=== PATIENT | female | born 1980 | race Hispanic/Latino ===

== ENCOUNTER 2017-08-15 10:38 | Outpatient (CLI) | payer OTHER ==
--- NOTE | 2017-08-15 11:50 | RAD ---
THORACIC SPINE THREE VIEWS: History: 36-year-old female with thoracic spine pain. FINDINGS: Mild generalized spondylosis. No acute fracture, dislocation, or significant malalignment. IMPRESSION: Mild spondylosis. POS: [facility]
--- NOTE | 2017-08-15 15:59 | RAD ---
LUMBAR SPINE FIVE VIEWS: History: 36-year-old female with low back pain. Comparison: None. FINDINGS: Status post Esure post-operative changes involving the fallopian tubes. Disc spaces are adequately p reserved. No acute fracture or dislocation or significant malalignment. Mild spondylosis, particular ly at L1-2. IMPRESSION: Mild spondylosis. No other acute process. POS: [facility]
== END 2017-08-15 10:39 | disposition home or self-care (01) ==
LOC: RAD 10:38
PROVIDERS: ATTEND Family Medicine
DX: M54.5 Low back pain (principal); M47.814 Spondylosis without myelopathy or radiculopathy, thoracic region; M47.816 Spondylosis without myelopathy or radiculopathy, lumbar region
CPT/HCPCS: 36415; 72070; 72110; 85025; 85652; 86038; 86140; 86430

== ENCOUNTER 2017-09-17 08:05 | Emergency (ER) | payer OTHER ==
--- NOTE | 2017-09-17 08:59 | RAD ---
PORTABLE PA CHEST XRAY: DATE: 09/17/17. HISTORY: Cough for 1 week. COMPARISON: 09/06/11. FINDINGS: Cardiac silhouette and pulmonary vasculature are within normal limits. The lungs are clear. There h as been no interval change from the prior study. IMPRESSION: No acute cardiopulmonary process. POS: [facility]
== END 2017-09-17 09:21 | disposition home or self-care (01) ==
LOC: ERS 08:05
DX: J20.9 Acute bronchitis, unspecified (principal); E11.9 Type 2 diabetes mellitus without complications; K21.9 Gastro-esophageal reflux disease without esophagitis; J45.909 Unspecified asthma, uncomplicated
CPT/HCPCS: 71010; 94640; J7620

== ENCOUNTER 2017-10-26 16:05 | Outpatient (CLI) | payer OTHER | END 2017-10-26 16:06 | disposition home or self-care (01) | LOC: BICRAD 16:05 | PROVIDERS: ATTEND Family Medicine | DX: M79.644 Pain in right finger(s) (principal) ==

== ENCOUNTER 2018-08-14 09:34 | Outpatient (CLI) | payer OTHER ==
[2018-08-14] MEDS ORDERED: ISOVUE-370 76%-LOCM 1 ML ONE (11:18)
--- NOTE | 2018-08-14 11:23 | CT ---
CT OF ABDOMEN AND PELVIS PERFORMED WITH CONTRAST ENHANCEMENT: History: Left sided abdomen pain, more left upper quadrant. Pain for about one month. Comparison: 03-01-13 examination. FINDINGS: The lung bases are clear of infiltrative process. The liver, spleen, pancreas, and gallbladder regions are fairly unremarkable. Question of some slight fatty change to the liver. Right and left adrenal glands and right and left kidneys are normal in size. There is no significant periaortic or mesenteric lymphadenopathy. CT OF PELVIS PERFORMED WITH INTRAVENOUS CONTRAST ENHANCEMENT: The patient appears to have undergone tubal ligation. Somewhat prominent follicles involving the adne xa but no free fluid. A small fat containing paraumbilical hernia is seen. Review of osseous structures show no significant findings. IMPRESSION: 1. No acute abnormalities of the abdomen or pelvis. 2. Small fat containing paraumbilical hernia. POS: [facility]
== END 2018-08-14 09:35 | disposition home or self-care (01) ==
LOC: BICCT 09:34
PROVIDERS: ATTEND Internal Medicine Gastroenterology
DX: R10.12 Left upper quadrant pain (principal); R10.33 Periumbilical pain; R10.32 Left lower quadrant pain; R11.2 Nausea with vomiting, unspecified; R19.4 Change in bowel habit; K42.9 Umbilical hernia without obstruction or gangrene; Z79.1 Long term (current) use of non-steroidal anti-inflammatories (NSAID)
CPT/HCPCS: 74177

== ENCOUNTER 2018-11-12 06:50 | Outpatient (CLI) | payer OTHER ==
[2018-11-12 09:54] LABS: Hemoglobin 13.8 g/dL (12.0-16.0); Mean Corpuscular HGB CONC 33.3 g/dL (32.0-36.0); Mean Corpuscular Hemoglobin 29.6 pg (27.0-31.0); Mean Corpuscular Volume 88.7 fL (78.0-98.0); Mean Platelet Volume 6.7 fL (7.4-10.4); Platelet Count 361 thou/uL (130-400); RBC Distribution Width 11.6 % (11.5-14.5); Red Blood Cell (RBC) Count 4.65 mill/uL (4.20-5.40); White Blood Cell (WBC) Count 9.3 thou/uL (4.8-10.8)
== END 2018-11-12 06:51 | disposition home or self-care (01) ==
LOC: LABBT 06:50
PROVIDERS: ATTEND Orthopaedic Surgery
DX: Z01.812 Encounter for preprocedural laboratory examination (principal); M65.331 Trigger finger, right middle finger
CPT/HCPCS: 85027

== ENCOUNTER 2018-11-14 07:14 | Day surgery (SDC) | payer OTHER ==
[2018-11-12 09:58] VITALS: BMI 34.3
[2018-11-14] MEDS ORDERED: Midazolam HCl 2 mg/2 ml Vial ONE (09:24)
[2018-11-14] MEDS ORDERED: Fentanyl 100 MCG/2 ML VIAL ONE (09:37)
[2018-11-14] MEDS ORDERED: Lidocaine 1% (PF) 30 ML VIAL ONE (09:39)
[2018-11-14] MEDS ORDERED: Lidocaine 1% w/Epinephrine 1:100K 20 ML VIAL ONE (09:40)
[2018-11-14] MEDS ORDERED: CEFAZOLIN 2 GM/50 ML BAG ONE (09:42)
[2018-11-14] MEDS ORDERED: HYDROcodone/Acetaminophen 5/325 mg Tablet ONE (11:50)
--- NOTE | 2018-11-14 12:14 | OP ---
DATE OF PROCEDURE: 11/14/2018 PREOPERATIVE DIAGNOSIS: Right middle finger trigger finger. POSTOPERATIVE DIAGNOSIS: Right middle finger trigger finger. PROCEDURE PERFORMED: Right middle finger trigger finger release. CHANNEL MARKETING PROGRAM MANAGER: None. ANESTHESIOLOGIST: Micha Pelaez. ANESTHESIA: The patient received a LMA with 8 mL of 1% lidocaine with epinephrine. ESTIMATED BLOOD LOSS: 5 mL. TOURNIQUET TIME: 11 minutes at 250 mmHg. ANTIBIOTICS: Ancef 2 g. COMPLICATIONS: None. HISTORY OF PRESENT ILLNESS: Ms. Rebollar is a 38-year-old female. She had triggering of her finger, had injection, which did not resolve it. I discussed with the patient risks and benefits of trigger finger release that include pain, scar, bleeding, infection, damage to vital structures, decreased range of motion and strength, and continued pain despite surgical intervention. The patient understood the risks and benefits of the procedure. She elected to proceed. DESCRIPTION OF PROCEDURE: A time-out was performed designating the patient's right upper extremity as the operative site, based on site, consents, and marking. After time-out, tourniquet was brought up for total of 11 minutes, I made an incision over the patient's MCP of her third metacarpal for the long finger, came down, dissected down, took down the patient's first annular earnest and then completely released it proximally and distally. I ensured that I could pull the tendon up through the wound proximally to ensure that there was no further tethering. I let the tourniquet down, closed with 4-0 nylon. I injected 4 mL 1% with epi in-line with the digital nerves more proximally. Then, injected the remaining 4 mL in the incision after closure. I then closed with simple stitches of 4-0 nylon. The patient will follow up with me in 10 to 14 days. Begin range of motion of hand as tolerated. Remove the dressing in 2 days. Given hydrocodone for pain relief, 10 tablets. She may begin range of motion as tolerated and take ibuprofen and Tylenol as needed for pain. Job ID: [id number]
[2018-11-14] MEDS ORDERED: Ondansetron PF 4 MG/2 ML Vial ONE (15:36)
[2018-11-14] MEDS ORDERED: Lidocaine 1% PF 5 ML VIAL ONE (15:36)
[2018-11-14] MEDS ORDERED: PROPOFOL 200 MG/20 ML VIAL ONE (15:36)
== END 2018-11-14 12:40 | disposition home or self-care (01) ==
LOC: SDC 07:14
PROVIDERS: ATTEND Orthopaedic Surgery
PROC: 0LN70ZZ Release Right Hand Tendon, Open Approach (ICD-10-PCS; principal; 2018-11-14)
DX: M65.331 Trigger finger, right middle finger (principal)
CPT/HCPCS: J2001; J2250; J2405; J2704; J3010

== ENCOUNTER 2021-10-17 07:57 | Outpatient (CLI) | payer OTHER | END 2021-10-17 07:58 | disposition home or self-care (01) | LOC: NM 07:57 | PROVIDERS: ATTEND Physician Assistant Medical | DX: R10.12 Left upper quadrant pain (principal); E11.43 Type 2 diabetes mellitus with diabetic autonomic (poly)neuropathy; R53.83 Other fatigue | CPT/HCPCS: 78264; A9541 ==